=== PATIENT | female | born 1930 | race Caucasian/White ===

== ENCOUNTER 2017-02-20 12:24 | Inpatient (IN) | payer OTHER ==
[~2017-02-20] VITALS: Ht 157.5 cm; Wt 72.6 kg
--- NOTE | ~2017-02-20 | 2DMMODE ---
[facility] [address] [place] [address] 2 D/M-MODE ECHOCARDIOGRAM Name: RACHEL CARLOS Room #: 458-P ADM IN M.R.#: [id number] Admission: 02/20/17 Attend Phys: Roberto Javier Discharge: Date of : [birth year] Date of Service: 02/24/17 0849 Report #: [id number] THIS REPORT FOR: //name// APPROVED REPORT Study performed: 02/24/2017 08:07:50 EXAM: Comprehensive 2D, Doppler, and color-flow Echocardiogram Patient Location: Bedside Room #: 458 Blood Pressure: 153/63 mmHg HR: 56 bpm Other Information Study Quality: Adequate Indications Syncope Hx: HTN, DM 2D Dimensions RVDd: 32.69 mm LVEF(%): 55.21 (>50%) IVSd: 10.35 (7-11mm) LVOT Diam: 21.46 (18-24mm) LVDd: 48.23 mm PWd: 9.42 (7-11mm) Ascending Aorta: 34.53 mm LVDs: 34.37 (25-40mm) Aortic Root: 35.72 mm Real's LVEF: 55.21 % Volumes Left Atrial Volume (Systole) Single Plane 4CH: 47.26 mL Single Plane 2CH: 29.40 mL Aortic Valve AoV Peak Brandon.: 1.49 m/s AO Peak Gr.: 8.85 mmHg LV Max P.51 mmHg LV Max: 0.94 m/s Mitral Valve E/A Ratio: 0.7 MV Decel. Time: 273.29 ms MV E Max Brandon.: 0.76 m/s MV A Brandon.: 1.06 m/s [facility] [address] [address] 2 D/M-MODE ECHOCARDIOGRAM Name: RACHEL CARLOS Marah Room #: 458-P [facility] IN [facility].#: [id number] Admission: 02/20/17 Attend Phys: Roberto Javier Discharge: Date of : [birth year] Date of Service: 02/24/17 0849 Report #: [id number] MV PHT: 79.25 ms Pulmonary Valve PV Peak Brandon.: 0.92 m/s PV Peak Gr.: 3.41 mmHg Pulmonary Vein P Vein S: 62.7 m/s P Vein D: 36.9 m/s P Vein A Dur.: 31.4 m/s PVa Duration: 175 Tricuspid Valve TR Peak Brandon.: 2.68 m/s RAP Estimate: 5.00 mmHg TR Peak Gr.: 28.76 mmHg RVSP: 34.00 mmHg Left Ventricle The left ventricle is normal size. There is normal LV segmental wall motion. There is normal left ventricular wall thickness. Left ventricular systolic function is normal. LVEF is 55%. Grade I - abnormal relaxation pattern. Right Ventricle The right ventricle is normal size. The right ventricular systolic function is normal. Atria The left atrium size is normal. The right atrium size is normal. Aortic Valve Aortic valve is mildly calcified. Trace aortic regurgitation. There is no aortic valvular stenosis. Mitral Valve The mitral valve is normal in structure. No mitral regurgitation. Tricuspid Valve The tricuspid valve is normal in structure. There is trace to mild tricuspid regurgitation. The right atrial pressure is estimated at 5 mmHg. There is mild pulmonary hypertension with an estimated PAP of 34mmHg. Pulmonic Valve Pulmonic valve is not well visualized. Trace pulmonic regurgitation. [facility] [address] [place] [address] 2 D/M-MODE ECHOCARDIOGRAM Name: RACHEL CARLOS Room #: 458-P [facility] IN .R.#: [id number] Admission: 02/20/17 Attend Phys: Roberto Javier Discharge: Date of : [birth year] Date of Service: 02/24/17 0849 Report #: [id number] Great Vessels The aortic root is normal in size. The ascending aorta is normal in size. IVC is normal in size and collapses >50% with inspiration. Pericardium There is no pericardial effusion. <Conclusion> Left ventricular systolic function is normal. There is normal LV segmental wall motion. LVEF is 55%. Grade I - abnormal relaxation pattern. Aortic valve is mildly calcified. Trace regurgitation, no stenosis. The mitral valve is normal in structure. No mitral regurgitation. Estimated PAP of 34mmHg. There is no pericardial effusion. <ELECTRONICALLY SIGNED> By: Mohinder Black MD, FACC 02/24/17848 8 8 Mohinder Black MD, FAC /INF
--- NOTE | ~2017-02-20 | HC ---
[facility] [place] [address] CONSULTATION Name: RACHEL CARLOS Room #: 458-P ADM IN M.R.#: [id number] Admission: 02/20/17 Attend Phys: Haris Munoz MD Discharge: Date of : [birth year] Report #: [id number] THIS REPORT FOR: //name// CC: Haris Munoz Amanda Mcgregor DATE OF SERVICE: 02/20/2017 REFERRING PROVIDER: Haris Munoz MD REASON FOR CONSULTATION: Abdominal pain. HISTORY OF PRESENT ILLNESS: The patient is an 87-year-old female who complains of a few day history of worsening epigastric to right upper quadrant abdominal pain and questionable fevers at home. The patient denied nausea or vomiting; however, had severe abdominal pain. The patient has had numerous falls at home over the past month and states she has had prior episodes of similar pain 2 years ago, whereby she underwent CT scan of the abdomen and pelvis as well as endoscopy with no definite diagnosis. The patient presented to the emergency room where she was evaluated with laboratories and a CT scan of the abdomen and pelvis. The patient's labs showed a significant leukocytosis with a white blood cell count of 22.1 thousand. Her creatinine was elevated at 1.5 and her liver function enzymes were normal. The patient's CT scan of the abdomen and pelvis, however, showed a markedly abnormal gallbladder with diffuse wall thickening, stranding and pericholecystic fluid. As this was consistent with severe acute cholecystitis that had been ongoing for a few days, the patient has been admitted and I have been asked to evaluate. PAST MEDICAL HISTORY: Prior appendectomy, partial mastectomy, diabetes mellitus, hypertension, GERD and right hip surgery. HOME MEDICATIONS: Metoprolol, Celexa, insulin, losartan, naproxen, acetaminophen, MiraLax, Synthroid, and Ambien. ALLERGIES: CODEINE, SULFA, and TRAMADOL. FAMILY HISTORY: Reviewed and noncontributory. SOCIAL HISTORY: The patient does not utilize any tobacco or illicit drugs. She does drink alcohol socially. REVIEW OF SYSTEMS: GENERAL: The patient denies nocturnal fevers or chills. HEENT: No change in vision, change in hearing. NECK: No swelling or difficulty swallowing. HEART: No chest pain or palpitations. [address] [address] CONSULTATION Name: RACHEL CARLOS Room #: 458-P [facility] IN [facility].#: [id number] Admission: 02/20/17 Attend Phys: Haris Munoz MD Discharge: Date of : [birth year] Report #: [id number] LUNGS: No cough or shortness of breath. ABDOMEN: Abdominal pain with no nausea or vomiting. GENITOURINARY: No dysuria or hematuria. ENDOCRINE: No polyuria, polydipsia. HEMATOLOGIC: No history of bleeding or easy bruising. EXTREMITIES: No history of weakness or limited range of motion. NEUROLOGIC: No history of syncope or near syncopal episodes, although she has been sustaining falls at home. PSYCHIATRIC: No history of anxiety or depression. SKIN AND INTEGUMENT: No history of abnormal lesions or moles. PHYSICAL EXAMINATION: VITAL SIGNS: Temperature 98.7, pulse 81, respirations 16, blood pressure 115/50. She stands 5 feet 2 inches tall and weighs 160 pounds. GENERAL: Alert and oriented, in no acute distress. HEENT: Normocephalic, atraumatic. Pupils equal, round, reactive to light. NECK: Supple, without lymphadenopathy. Trachea midline. HEART: Regular rate and rhythm. LUNGS: Clear to auscultation bilaterally. ABDOMEN: Soft, nondistended. She is markedly tender to palpation in the epigastrium and right upper quadrant, but does not have any rebound or peritoneal signs or symptoms. GENITOURINARY: Normal external female genitalia. EXTREMITIES: No clubbing, cyanosis or edema. NEUROLOGIC: Cranial nerves 2-12 are grossly intact. PSYCHIATRIC: Normal mood and affect. SKIN AND INTEGUMENT: No other abnormal lesions or moles. LABORATORY AND X-RAY DATA: CBC shows white blood cell count of 22.1 thousand, hemoglobin 10.7 and platelets 290,000. Creatinine is 1.5. Liver function enzymes are normal. Albumin is low at 2.3. INR 1.0. Chest x-ray shows cardiomegaly as well as a possible right basilar infiltrate versus atelectasis. CT scan of the abdomen and pelvis as per HPI shows markedly abnormal gallbladder with diffuse wall thickening, pericholecystic fluid and inflammatory stranding throughout the entire right upper quadrant. ASSESSMENT AND PLAN: An 87-year-old female with a few day history of progressively worsening right upper quadrant epigastric abdominal pain and a workup consistent with severe acute cholecystitis. The patient does have a prior history of multiple falls in the past month as well. The patient has been admitted and I recommend IV fluid rehydration, IV antibiotics and we will proceed with percutaneous cholecystostomy tube placement by Interventional Radiology due to the severity of her cholecystitis and the extremely low likelihood of successful laparoscopic cholecystectomy at this time point. The patient should receive rehydration to combat her acute kidney injury with mild renal insufficiency as her creatinine is 1.5. She also has severe protein [address] [place] [address] CONSULTATION Name: RACHEL CARLOS Room #: 458-P [facility] IN [facility]#: [id number] Admission: 02/20/17 Attend Phys: Haris Munoz MD Discharge: Date of : [birth year] Report #: [id number] calorie malnutrition, which will only stand to show a lower albumin once she is properly rehydrated. In addition, due to her multiple syncopal episodes, I understand Neurology has been consulted for a complete workup. I sincerely appreciate this consult. I will follow closely and leave any further recommendations in the patient's chart as appropriate. <ELECTRONICALLY SIGNED> By: Randi Morales MD, FACS 02/21/17 0741 [id number] 0450 Randi Morales MD, FACS /nt
[~2017-02-20 12:24] MED LIST: ALEVE220 M1 PO; AMBIEN 10 MG TA10 MG PO; AMBIEN 5 MG TABL5 M1 PO; ANTIVERT12.5 MG PO; APAP500 PO; ASPIRIN325; CENTRUM SILVER1 EAC4 PO; COZAAR100 MG PO; ESCITALOPRAM OXA5 MG PO; FELDENE20 MG; HUMALOG PE100 UNIT/M SC; HUMULIN 70100 UNIT/2 SUBQ; IBUPROFEN200 M2 PO; LEVEMIR FL100 UNIT/2 SQ; LEVOTHROID150 MCG PO; LEVOTHYROXINE 0.15MG PO; LIPITOR20 MG PO; METOCLOPRAMIDE 55 MG PO; METOPROLOL SUCC50 MG PO; NORCO 5-325 TA1 EACH PO; NORFLEX100 MG PO; PRILOSEC 20 MG20 MG; REGLAN 5 MG TAB5 M1; REGLAN 5 MG TAB5 MG PO; REMERON 30 MG T30 M1; SIMVASTATIN40 MG; SYSTANE 0.3-0.1 EACH OPHTHALMIC; TOPROL XL50 MG; VALIUM5 MG PO; VITAMIN D400 UNI1 PO
[2017-02-20 12:27] VITALS: BP 116/72
[2017-02-20 15:11] LABS: HEMOGLOBIN 10.7 gm/dL (12.0-15.0); MCH 29.4 pg (26.0-34.0); MCHC 32.4 g/dL (28.0-37.0); MCV 90.6 fL (80.0-100.0); PLATELET COUNT 290 thou/uL (150-400); RBC 3.65 mil/uL (4.20-5.00); RDW 13.4 % (10.5-14.5); WBC 22.1 thou/uL (4.0-11.0)
[2017-02-20 15:12] LABS: MANUAL DIFF YES
[2017-02-20 15:21] LABS: PROTIME 10.7 Seconds (9.3-11.4)
[2017-02-20 15:27] LABS: CALCIUM 8.1 mg/dL (8.5-10.1); CREATININE 1.5 mg/dL (0.6-1.0); POTASSIUM 3.9 mmol/L (3.5-5.1)
[2017-02-20 15:29] LABS: ALBUMIN 2.3 g/dL (3.4-5.0); TOTAL BILIRUBIN 0.6 mg/dL (<0.1-1.0); TOTAL PROTEIN 6.7 g/dL (6.4-8.2)
[2017-02-20 15:30] LABS: ABSOLUTE NEUTROPHILS 17.9 thou/uL (1.4-8.2); TOTAL CELL COUNT 100
[2017-02-20 16:44] VITALS: BP 115/50
[2017-02-20 17:34] VITALS: BP 115/50
[2017-02-20 18:20] VITALS: BP 157/69
[2017-02-20 21:40] VITALS: BP 132/49
[2017-02-20 23:44] VITALS: BP 121/51
[2017-02-21 03:50] LABS: HEMATOCRIT 28.8 % (37.0-47.0); HEMOGLOBIN 9.2 gm/dL (12.0-15.0); MCH 29.3 pg (26.0-34.0); MCHC 32.1 g/dL (28.0-37.0); MCV 91.4 fL (80.0-100.0); RBC 3.15 mil/uL (4.20-5.00); RDW 13.9 % (10.5-14.5)
[2017-02-21 04:00] VITALS: BP 111/42
[2017-02-21 04:25] LABS: CREATININE 1.3 mg/dL (0.6-1.0); POTASSIUM 4.4 mmol/L (3.5-5.1); TOTAL BILIRUBIN 0.6 mg/dL (<0.1-1.0); TOTAL PROTEIN 5.3 g/dL (6.4-8.2)
[2017-02-21 07:59] VITALS: BP 114/42
[2017-02-21 11:53] VITALS: BP 122/50
[2017-02-21 15:08] VITALS: BP 133/51
[2017-02-21 19:06] VITALS: BP 116/45
[2017-02-22 03:37] VITALS: BP 144/59
[2017-02-22 04:23] LABS: HEMOGLOBIN 9.8 gm/dL (12.0-15.0); MCH 29.9 pg (26.0-34.0); MCHC 32.6 g/dL (28.0-37.0); MCV 91.5 fL (80.0-100.0); RBC 3.28 mil/uL (4.20-5.00); RDW 14.3 % (10.5-14.5); WBC 12.1 thou/uL (4.0-11.0)
[2017-02-22 04:39] LABS: ALBUMIN 1.9 g/dL (3.4-5.0); CALCIUM 6.9 mg/dL (8.5-10.1); TOTAL BILIRUBIN 0.4 mg/dL (<0.1-1.0); TOTAL PROTEIN 5.2 g/dL (6.4-8.2)
[2017-02-22 08:00] VITALS: BP 151/57
[2017-02-22 11:54] LABS: FOLIC ACID 12.7 ng/mL (8.6-58.9)
[2017-02-22 12:05] VITALS: BP 142/72
[2017-02-22 17:26] VITALS: BP 132/57
[2017-02-22 19:03] VITALS: BP 144/69
[2017-02-22 23:22] LABS: URINE BILIRUBIN NEGATIVE (Negative); URINE BLOOD TRACE (Negative); URINE COLOR YELLOW; URINE GLUCOSE-RANDOM* TRACE (Negative); URINE KETONES NEGATIVE (Negative); URINE NITRITE NEGATIVE (Negative); URINE PROTEIN (DIPSTICK) TRACE (Negative); URINE SPECIFIC GRAVITY 1.025 (1.003-1.035)
[2017-02-23 00:08] LABS: GLYCOHEMOGLOBIN (HGB A1C) 7.4 % (4.8-5.6)
[2017-02-23 04:00] VITALS: BP 149/53
[2017-02-23 05:28] LABS: HEMATOCRIT 29.3 % (37.0-47.0); HEMOGLOBIN 9.6 gm/dL (12.0-15.0); MCH 29.6 pg (26.0-34.0); MCHC 32.9 g/dL (28.0-37.0); MCV 89.9 fL (80.0-100.0); RBC 3.26 mil/uL (4.20-5.00); RDW 14.2 % (10.5-14.5); WBC 11.2 thou/uL (4.0-11.0)
[2017-02-23 05:42] LABS: CALCIUM 7.6 mg/dL (8.5-10.1); CREATININE 0.9 mg/dL (0.6-1.0); POTASSIUM 3.9 mmol/L (3.5-5.1)
[2017-02-23 08:23] VITALS: BP 148/65
[2017-02-23 12:13] VITALS: BP 168/66
[2017-02-23 15:43] VITALS: BP 127/86
[2017-02-23 19:05] VITALS: BP 150/82
[2017-02-24 03:32] VITALS: BP 150/62
[2017-02-24 05:29] LABS: MCHC 33.2 g/dL (28.0-37.0); MCV 90.5 fL (80.0-100.0); RBC 3.32 mil/uL (4.20-5.00); RDW 14.1 % (10.5-14.5); WBC 10.4 thou/uL (4.0-11.0)
[2017-02-24 05:49] LABS: CALCIUM 7.9 mg/dL (8.5-10.1); CREATININE 0.8 mg/dL (0.6-1.0); POTASSIUM 3.9 mmol/L (3.5-5.1)
[2017-02-24 07:07] VITALS: BP 153/63
[2017-02-24] MEDS ORDERED: MIRALAX17 GM PO (11:55)
[2017-02-24 12:25] VITALS: BP 156/84
[2017-02-24 15:57] VITALS: BP 160/66
[2017-02-24 19:10] VITALS: BP 154/58
[2017-02-25 03:23] VITALS: BP 152/67
[2017-02-25 05:33] LABS: HEMATOCRIT 30.5 % (37.0-47.0); HEMOGLOBIN 10.2 gm/dL (12.0-15.0); MCH 30.2 pg (26.0-34.0); MCHC 33.5 g/dL (28.0-37.0); RBC 3.39 mil/uL (4.20-5.00); RDW 13.8 % (10.5-14.5); WBC 11.2 thou/uL (4.0-11.0)
[2017-02-25 05:51] LABS: CALCIUM 8.9 mg/dL (8.5-10.1); CREATININE 0.9 mg/dL (0.6-1.0); POTASSIUM 3.9 mmol/L (3.5-5.1)
[2017-02-25] MEDS ORDERED: CIPRO500 MG PO (07:23)
[2017-02-25 07:26] VITALS: BP 169/73
[2017-02-25 12:19] VITALS: BP 169/73
[2017-02-25 12:31] VITALS: BP 169/73
== END 2017-02-25 15:42 | disposition home health service (06) | DRG 444 ==
LOC: ER 12:24 → 4W 16:59 → EROBS 16:59 → 4W 17:35
PROVIDERS: Emergency Medicine; Family Medicine; Psychiatry & Neurology Neurology; Surgery
PROC: 0F9430Z Drainage of Gallbladder with Drainage Device, Percutaneous Approach (ICD-10-PCS; principal; 2017-02-21)
DX: K81.0 Acute cholecystitis (principal); E43 Unspecified severe protein-calorie malnutrition; N17.9 Acute kidney failure, unspecified; E87.0 Hyperosmolality and hypernatremia; I10 Essential (primary) hypertension; K21.9 Gastro-esophageal reflux disease without esophagitis; D64.9 Anemia, unspecified; M19.90 Unspecified osteoarthritis, unspecified site; E78.5 Hyperlipidemia, unspecified; R29.6 Repeated falls; E11.40 Type 2 diabetes mellitus with diabetic neuropathy, unspecified; M48.02 Spinal stenosis, cervical region; M47.892 Other spondylosis, cervical region; B96.20 Unspecified Escherichia coli [E. coli] as the cause of diseases classified elsewhere; Z68.29 Body mass index [BMI] 29.0-29.9, adult; Z79.4 Long term (current) use of insulin; Z85.3 Personal history of malignant neoplasm of breast; Z79.899 Other long term (current) drug therapy; Z90.49 Acquired absence of other specified parts of digestive tract; Z88.2 Allergy status to sulfonamides; Z88.8 Allergy status to other drugs, medicaments and biological substances
CPT/HCPCS: 10047

== ENCOUNTER 2017-04-22 06:17 | Inpatient (IN) | payer OTHER ==
[~2017-04-22] VITALS: Ht 157.5 cm; Wt 67.6 kg
--- NOTE | ~2017-04-22 | O ---
[facility] [place] [address] OPERATIVE REPORT Name: RACHEL CARLOS Marah Room #: 310-P [facility] IN ..#: [id number] Admission: 04/22/17 Attend Phys: Randi Morales MD, Discharge: 04/23/17 Date of : [birth year] Report #: [id number] THIS REPORT FOR: //name// CC: Randi Thrasherhanie Amherstdale DATE OF SERVICE: 04/22/2017 PREOPERATIVE DIAGNOSES: 1. Severe acute cholecystitis, status post percutaneous cholecystostomy tube several weeks ago. 2. Suspected intra-abdominal adhesions. POSTOPERATIVE DIAGNOSES: 1. Severe acute cholecystitis, status post percutaneous cholecystostomy tube several weeks ago. 2. Dense and significant intra-abdominal adhesions. PROCEDURES PERFORMED: 1. Laparoscopic cholecystectomy with intraoperative cholangiogram. 2. Extensive laparoscopic lysis of adhesions lasting greater than 60 minutes. 3. This is a modifier 22 procedure for extreme difficulty of procedure secondary to the intense infectious and inflammatory response at the time of her acute cholecystitis causing marked adhesions in the right upper quadrant that necessitated a greater than 1 hour lysis of adhesions and added extreme difficulty to the procedure necessitating IC green intraoperative evaluation. In addition, this pushed the total operative time to nearly 2 hours as opposed to the 15-20 minute procedure. ANESTHESIA: General endotracheal anesthesia. ESTIMATED BLOOD LOSS: Minimal (less than 10 mL). COMPLICATIONS: None appreciated. SPECIMENS: Gallbladder to pathology. INDICATIONS: The patient is an 87-year-old female who presented slightly greater than 8 weeks ago with severe complaints of right upper quadrant abdominal pain of greater than 1 weeks' duration. The patient was evaluated with laboratories and a CT scan of the abdomen and pelvis, which showed an impressive inflammatory process in the right upper quadrant consistent with severe acute cholecystitis. Due to the patient's long length of time with symptoms, she underwent placement of a percutaneous cholecystostomy tube. The patient was treated with antibiotics and has improved markedly and now that she is greater than 8 weeks out from her initial insult, indication was for [address] [address] OPERATIVE REPORT Name: RACHEL CARLOS Room #: 310-P [facility].#: [id number] Admission: 04/22/17 Attend Phys: Randi Morales MD, Discharge: 04/23/17 Date of : [birth year] Report #: [id number] definitive management with cholecystectomy today. PROCEDURE: After explaining the risks, benefits, and alternatives of the procedure with the patient in detail in the preoperative holding area and obtaining written consent, the patient was brought to the operating room and placed supine on the operating room table. After conducting a thorough timeout procedure, verifying correct patient and procedure, the patient was given general endotracheal anesthesia. Once adequate anesthesia was obtained, her SCDs were hooked up to pneumatic compression device. She was given a preoperative dose of antibiotics in line with the SCIP protocol. The patient's abdomen was prepped and draped in standard surgical sterile fashion. 5 mL of 0.5% Marcaine with epinephrine were used to anesthetize the skin in the supraumbilical location. A #15 bladed scalpel was used to create a 1-cm transverse skin incision at this location. An 11-mm Visiport was placed over 0 degree 5-mm laparoscope and was introduced through this incision site. Once intraabdominal placement was verified visually, the obturator for the trocar and laparoscope were both removed and the abdomen was insufflated to 15 mmHg using carbon dioxide gas. The laparoscope was changed to a 5-mm 30-degree laparoscope, which was reintroduced through this trocar. The entire abdomen was evaluated to ensure no injury upon entry. We immediately identified dense intra-abdominal adhesions in the right upper quadrant. The patient was placed in reverse Trendelenburg position with right side elevated and I proceeded to place 3 additional 5-mm trocars. One was placed in subxiphoid location and two were placed along the patient's right subcostal margin. All three additional 5-mm ports were placed under direct vision after anesthetizing the skin at each location with 5 mL of 0.5% Marcaine with epinephrine and I had created small skin nicks using #15 bladed scalpel. I now carried out an extensive laparoscopic lysis of adhesions to take down all omental adhesions from the gallbladder wall itself. Once this had been performed, which again took greater than an hour, I performed a tedious dissection down around the cholecystocystic junction using combination of Harmonic scalpel and Maryland dissector. Using the inferolateral most port along the patient's right flank, I was able to help manipulate the gallbladder and elevate the infundibulum cephalad. Once I had attained a critical view, namely the cystic duct emanating from the infundibulum of the gallbladder and coursing the common bile duct as well as cystic artery running the surface of the gallbladder and I had created a window behind each, I transected the cystic artery nearest to the gallbladder side using Harmonic scalpel for hemostasis. I now performed an intraoperative cholangiogram shooting directly through the cholecystostomy tube showing patency of the cystic duct with both intra and extrahepatic bile ducts becoming opacified. There was antegrade flow of contrast in the duodenum with no filling defects or obstruction. At this juncture, I now cut the cholecystostomy tube externally and removed it in full and passed it off the field sterilely. The Harmonic scalpel was used to take down the tract that had formed between the gallbladder and the abdominal wall right along the posterior aspect of the anterior abdominal wall. I was now able to retract this dome of the gallbladder in most [facility] [address] [place] [place] [address] OPERATIVE REPORT Name: RACHEL CARLOS Marah Room #: 310-P [facility] IN [facility].#: [id number] Admission: 04/22/17 Attend Phys: Randi Morales MD, Discharge: 04/23/17 Date of : [birth year] Report #: [id number] cephalad direction. I now placed two clips along the cystic duct nearest to the gallbladder side and 3 clips along the cystic duct nearest to the common bile duct side, but since the cystic duct was thickened and indurated, I did also elect to place a 0 PDS Endoloop around the cystic duct stump remnant after transecting it between sets of clips using a Harmonic scalpel to help seal the end of the duct closed as well. The Endoloop was seated below the clips and we made sure that this was not impinging upon the common duct in any way. Further retraction at the infundibulum of the gallbladder in cephalad direction allowed me to elevate the gallbladder off the liver bed using Harmonic scalpel for complete hemostasis. Once detached, laparoscope was removed, changed to the right midclavicular 5 mm trocar. The EndoCatch bag was placed in supraumbilical trocar. The specimen was placed within it under direct vision. The pursestring suture was drawn and specimen was removed from the abdomen under direct vision. I then placed a fascial closing suture around the supraumbilical fascial incision using 0 PDS suture on a William-Rene needle under direct vision to place a zkzbjf-oy-yzrkp suture. One final evaluation of the gallbladder fossa showed complete hemostasis with no spillage or bleeding whatsoever. The cystic duct stump remnant had clips and Endoloop that were secured. I then reduced the insufflation pressure to 5 mmHg and tied down the supraumbilical fascial incision suture under direct vision to ensure that I did not catch a loop of bowel or omentum in the repair. The abdomen was fully desufflated. All ports were removed under direct vision. A 4-0 Monocryl was used in a standard subcuticular fashion for all skin incisions and Dermabond glue was applied to all skin wounds. At the end of the lengthy procedure, all instrument, needle and sponge counts were correct. The patient tolerated the procedure without incident, was awakened in the operating room and transitioned to the recovery room in stable condition with no apparent complications. <ELECTRONICALLY SIGNED> By: Randi Morales MD, FACS 04/24/172011 1625 1720 Randi Morales MD, FACS /nt
--- NOTE | ~2017-04-22 | S ---
[facility] [place] [address] SURGICAL PATH RPT PROCEDURE Name: MILA CARLOS Room #: 310-P [facility] IN M.R.#: [id number] Admission: 04/22/17 Date of : [birth year] Discharge: 04/23/17 Report #: [id number] Path Case #: [id number] PATHOLOGY REPORT COLLECTION DATE: 04/22/2017 RECEIVED DATE: 04/22/2017 SUBMITTING PHYS: Dr. Randi Morales OTHER PHYS: Dr. Jerry Mcgregor SPECIMEN(S) RECEIVED: A.Gallbladder * * * * * * * * * * * * FINAL DIAGNOSIS: Gallbladder, cholecystectomy: - Moderate acute and chronic cholecystitis with focal ulceration. - Cholelithiasis. (IUV:mml; d/t: 04/24/2017) PATHOLOGIST: Ayah Miranda M.D. REPORT ELECTRONICALLY SIGNED BY: Ayah Miranda M.D. DATE/TIME: 04/24/2017 14:19 * * * * * * * * * * * * GROSS PATHOLOGY: Received in formalin labeled "Mila Carlos gallbladder," is a 6.5 x 2.8 x 2.5 cm, previously opened gallbladder with pink-anne serosal surfaces. Opening the gallbladder reveals velvety and light anne mucosa and an average wall thickness of 0.1 cm. Multiple yellow, multinodular calculi are present and no masses are noted grossly. Room Service Attendant sections from the body and fundus are submitted along with the proximal margin in cassette A1. (KAH; 04/23/2017) CLINICAL HISTORY: Cholelithiasis INITIAL CPT CODE(S): A; 78856 Professional services performed by [facility] at [facility] [address], [place] [address] Technical services performed by [facility] at [address] [place] [address] [address] [place] [address] SURGICAL PATH RPT PROCEDURE Name: SULAIMANMGMILA Room #: 310-P [facility].#: [id number] Admission: 04/22/17 Date of : [birth year] Discharge: 04/23/17 Report #: [id number] Path Case #: [id number] [place] [address]. [facility] [address] [place] [address] PHONE: [phone] DIRECTOR: Deep Márquez M.D. * * * END OF REPORT * * *
[~2017-04-22 06:17] MED LIST changes: +AMITRIPTYLINE H25 M2 PO; +ASPIR 8181 MG PO; +CIPRO500 MG PO; +COLACE100 MG PO; +COZAAR 50 MG TA50 M2 PO; +FOSAMAX 70 MG T70 MG PO; +LEVOTHYROXIN0.175 MG PO; +MELATONIN5 M1 PO; +MIRALAX17 GM PO; +NEURONTIN 300300 M1 PO; +VITAMIN B-12500 MCG PO; +VITAMIN D-32000 UNIT PO; +VITAMIN E400 UNIT PO
[2017-04-22 10:58] VITALS: BP 128/68
[2017-04-22 15:30] VITALS: BP 142/70
[2017-04-22 16:00] VITALS: BP 125/57
[2017-04-22 16:30] VITALS: BP 134/60
[2017-04-22 17:30] VITALS: BP 141/69
[2017-04-22 20:00] VITALS: BP 129/53
[2017-04-23] VITALS: BP 99/45
[2017-04-23 03:59] LABS: HEMATOCRIT 29.6 % (37.0-47.0); HEMOGLOBIN 9.7 gm/dL (12.0-15.0); MCH 30.2 pg (26.0-34.0); MCHC 32.7 g/dL (28.0-37.0); MCV 92.2 fL (80.0-100.0); RBC 3.21 mil/uL (4.20-5.00); RDW 13.9 % (10.5-14.5); WBC 11.8 thou/uL (4.0-11.0)
[2017-04-23 04:00] VITALS: BP 108/44
[2017-04-23 04:10] LABS: POTASSIUM 5.6 mmol/L (3.5-5.1)
[2017-04-23 04:15] LABS: CALCIUM 7.8 mg/dL (8.5-10.1)
[2017-04-23 07:35] VITALS: BP 118/51
[2017-04-23] MEDS ORDERED: HYDROCODON-ACE1 EAC7 PO (12:29)
[2017-04-23 12:57] VITALS: BP 118/51
[2017-04-23 13:08] VITALS: BP 118/51
== END 2017-04-23 13:30 | disposition home health service (06) | DRG 419 ==
LOC: OR 06:17 → TBA 06:17 → OR 08:41 → 3N 15:02
PROVIDERS: Surgery
PROC: BF121ZZ Fluoroscopy of Gallbladder using Low Osmolar Contrast (ICD-10-PCS; principal; 2017-04-22)
PROC: 0FT44ZZ Resection of Gallbladder, Percutaneous Endoscopic Approach (ICD-10-PCS; principal; 2017-04-22)
PROC: 0DNS4ZZ (ICD-10-PCS; principal; 2017-04-22)
DX: K81.0 Acute cholecystitis (principal); K66.0 Peritoneal adhesions (postprocedural) (postinfection); K21.9 Gastro-esophageal reflux disease without esophagitis; E11.9 Type 2 diabetes mellitus without complications; I10 Essential (primary) hypertension; Z90.49 Acquired absence of other specified parts of digestive tract; Z90.11 Acquired absence of right breast and nipple; Z88.6 Allergy status to analgesic agent; Z88.2 Allergy status to sulfonamides; Z79.899 Other long term (current) drug therapy; Z80.9 Family history of malignant neoplasm, unspecified
CPT/HCPCS: 10096; 50010; 50101; 50249; 50411; 50555; 50558; 50962; 51297; 51489; 51975; 52265; 53307; 54022; 54118; 55245; 55317; 56462; 56525; 56526; 62110; 62900; 70005